=== PATIENT | male | born 1945 | race Caucasian/White ===

== ENCOUNTER 2022-02-22 10:43 | Observation (INO) | payer MEDICARE, OTHER ==
[~2022-02-22] VITALS: Ht 175.3 cm; Wt 96.2 kg
[~2022-02-22 10:43] MED LIST: AMLODIPINE BESY10 MG PO; ASPIRIN81 MG PO; CLOTRIMAZOLE TROCHE PO; FLUCONAZOLE100 MG PO; IBUPROFEN200 MG PO; LEVAQUIN500 MG PO; LEVEMIR100 UNIT/1 SQ; LOSARTAN POTAS100 MG PO; MECLIZINE HCL12.5 MG PO; METFORMIN HCL1000 MG PO; PANTOPRAZOLE SO40 MG PO; SIMVASTATIN20 MG PO
[2022-02-22] MEDS ORDERED: SODIUM CHLORIDE 0.9% 500ML 500 ML IV ONE (11:30)
[2022-02-22 11:50] LABS: BASOPHILS # (AUTO) 0.1 (0.0-0.1); EOSINOPHILS % 0.3 % (0.0-6.0); HEMATOCRIT 36.7 % (38.2-49.6); HEMOGLOBIN 11.9 g/dL (14.0-18.0); LYMPHOCYTES # (AUTO) 1.5 (1.0-3.2); LYMPHOCYTES % 15.9 % (18.0-39.1); MEAN CORPUSCULAR HEMOGLOBIN 28.8 pg (28-32); MEAN CORPUSCULAR HGB CONC 32.4 g/dL (31-35); MEAN CORPUSCULAR VOLUME 88.9 fL (81-99); MONOCYTES # (AUTO) 0.6 (0.2-0.8); MONOCYTES % 6.6 % (4.4-11.3); NEUTROPHILS % 75.7 % (38.7-80.0); PLATELET COUNT 223 x10e3/uL (140-360); RED BLOOD COUNT 4.13 x10e6/uL (4.3-5.7); RED CELL DISTRIBUTION WIDTH 12.6 % (11.7-14.4)
[2022-02-22 12:10] LABS: ALANINE AMINOTRANSFERASE 10 IU/L (0-55); ALBUMIN/GLOBULIN RATIO 1.3 (0.8-2.0); ALKALINE PHOSPHATASE 55 IU/L (40-150); ANION GAP 16.3 mmol/L (8-16); BLOOD UREA NITROGEN 16 mg/dL (7-26); BUN/CREATININE RATIO 15 (6-25); CALCIUM 9.3 mg/dL (8.4-10.2); CARBON DIOXIDE 25 mmol/L (22-29); CHLORIDE 104 mmol/L (98-107); CREATINE KINASE 54 IU/L (30-200); CREATININE, SERUM 1.06 mg/dL (0.72-1.25); GLUCOSE 81 mg/dL (74-118); MAGNESIUM 1.8 MG/DL (1.3-2.1); POTASSIUM 3.3 mmol/L (3.5-5.1); SODIUM 142 mmol/L (136-145)
[2022-02-22 12:14] LABS: INR 0.98; PROTHROMBIN TIME 13.9 seconds (11.9-14.5)
[2022-02-22 12:15] LABS: PARTIAL THROMBOPLASTIN TIME 27.9 seconds (23.8-35.5)
[2022-02-22] MEDS ORDERED: POTASSIUM CHLORIDE 20 MEQ TAB CR PO STA (12:38)
[2022-02-22] MEDS ORDERED: ONDANSETRON HCL INJ 2MG/ML 2ML 2 MG/ML VIAL IV PRN (12:45)
[2022-02-22] MEDS ORDERED: NITROGLYCERIN 0.4 MG SUBL SL PRN (12:45)
[2022-02-22] MEDS ORDERED: FAMOTIDINE 20 MG/2 ML VIAL IV SCH (12:45)
[2022-02-22] MEDS: SODIUM CHLORIDE 0.9% 1000ML 1,000 ML IV SCH (13:22)
[2022-02-22] MEDS ORDERED: METOPROLOL TARTRATE INJ 1 MG/ML VIAL IV PRN (14:00)
[2022-02-22] MEDS ORDERED: POLYETHYLENE GLYCOL 3350 17 GM PACK PO PRN (14:00)
[2022-02-22] MEDS: DEXTROSE 50% SYRINGE 50 ML IV PRN ×2 (14:15→15:06)
[2022-02-22] MEDS ORDERED: DEXTROSE 50% SYRINGE 50 ML IV ONE (14:26)
[2022-02-22 14:49] VITALS: BP 128/65
[2022-02-22] MEDS ORDERED: LEVEMIR FL100 UNIT/1 SQ (15:18)
[2022-02-22] MEDS: INSULIN LISPRO 100 UNIT/1 ML 3ML VIAL SQ SCH ×2 (15:19→21:00)
[2022-02-22] MEDS: DOCUSATE SODIUM 100 MG CAP PO SCH (16:19)
[2022-02-22 16:42] VITALS: BP 128/65
[2022-02-22 20:00] VITALS: BP 118/66
[2022-02-22 20:34] LABS: CREATINE KINASE MB 1.5 ng/mL (0-5.0)
[2022-02-22] MEDS: SIMVASTATIN 20 MG TAB PO SCH (22:08)
[2022-02-23] VITALS (11 sets, daily range): BP systolic 121–174; BP diastolic 62–74
[2022-02-23] MEDS: SODIUM CHLORIDE 0.9% 1000ML 1,000 ML IV SCH ×2 (01:08→17:11)
[2022-02-23] MEDS: ACETAMINOPHEN 325 MG TAB PO PRN (01:09)
[2022-02-23 04:21] LABS: BASOPHILS # (AUTO) 0.1 (0.0-0.1); EOSINOPHILS # (AUTO) 0.1 (0.0-0.4); EOSINOPHILS % 1.6 % (0.0-6.0); HEMATOCRIT 34.1 % (38.2-49.6); HEMOGLOBIN 11.1 g/dL (14.0-18.0); LYMPHOCYTES # (AUTO) 2.2 (1.0-3.2); LYMPHOCYTES % 24.9 % (18.0-39.1); MEAN CORPUSCULAR HEMOGLOBIN 28.6 pg (28-32); MEAN CORPUSCULAR HGB CONC 32.6 g/dL (31-35); MEAN CORPUSCULAR VOLUME 87.9 fL (81-99); MONOCYTES # (AUTO) 0.5 (0.2-0.8); MONOCYTES % 6.1 % (4.4-11.3); NEUTROPHILS # (AUTO) 5.8 (2.1-6.9); NEUTROPHILS % 66.1 % (38.7-80.0); PLATELET COUNT 211 x10e3/uL (140-360); RED BLOOD COUNT 3.88 x10e6/uL (4.3-5.7); RED CELL DISTRIBUTION WIDTH 12.6 % (11.7-14.4)
[2022-02-23 04:40] LABS: MAGNESIUM 1.5 MG/DL (1.3-2.1); PHOSPHORUS 2.6 MG/DL (2.3-4.7)
[2022-02-23 04:46] LABS: ALBUMIN 3.4 g/dL (3.5-5.0); ALBUMIN/GLOBULIN RATIO 1.3 (0.8-2.0); CALCIUM 8.6 mg/dL (8.4-10.2); CHOL/HDL RATIO 2.7 (3.9-4.7); CREATININE, SERUM 0.84 mg/dL (0.72-1.25)
[2022-02-23 04:58] LABS: FREE T4 (FREE THYROXINE) 1.14 ng/dL (0.8-1.8); THYROID STIMULATING HORMONE 0.316 uIU/mL (0.350-4.940)
[2022-02-23 05:03] LABS: CREATINE KINASE MB 1.8 ng/mL (0-5.0)
[2022-02-23] MEDS: INSULIN LISPRO 100 UNIT/1 ML 3ML VIAL SQ SCH ×4 (08:30→21:00)
[2022-02-23] MEDS ORDERED: NYSTATIN/TRIAMCINOLONE 15 GM CR TOP SCH (09:00)
[2022-02-23] MEDS ORDERED: MAGNESIUM SULFATE 2GM/50ML 50 ML IV ONE (09:00)
[2022-02-23] MEDS: PANTOPRAZOLE SOD 40 MG TABEC PO SCH ×2 (09:10→16:07)
[2022-02-23] MEDS: DOCUSATE SODIUM 100 MG CAP PO SCH ×2 (09:12→16:07)
[2022-02-23] MEDS: ASPIRIN 81 MG ENTERIC COATED PO SCH (09:12)
[2022-02-23] MEDS: LOSARTAN POTASSIUM 100 MG TAB PO SCH (09:14)
[2022-02-23] MEDS: NYSTATIN/TRIAMCINOLONE 15 GM CR TOP SCH ×2 (09:20→16:12)
[2022-02-23] MEDS ORDERED: IOPAMIDOL 370 MG/ML 100 ML INFUS..BTL INJ ONE (11:00)
[2022-02-23] MEDS ORDERED: SODIUM CHLORIDE 0.9% 100 ML ONE (11:00)
[2022-02-23] MEDS: SIMVASTATIN 20 MG TAB PO SCH (21:11)
[2022-02-23 22:08] LABS: CREATINE KINASE MB 2.2 ng/mL (0-5.0)
[2022-02-24] VITALS (10 sets, daily range): BP systolic 113–178; BP diastolic 54–88
[2022-02-24] MEDS: SODIUM CHLORIDE 0.9% 1000ML 1,000 ML IV SCH ×2 (04:45→16:21)
[2022-02-24 06:19] LABS: ANION GAP 19.8 mmol/L (8-16); CALCIUM 8.9 mg/dL (8.4-10.2); CREATININE, SERUM 0.83 mg/dL (0.72-1.25); POTASSIUM 3.8 mmol/L (3.5-5.1)
[2022-02-24] MEDS: NYSTATIN/TRIAMCINOLONE 15 GM CR TOP SCH ×2 (08:42→16:20)
[2022-02-24] MEDS: INSULIN LISPRO 100 UNIT/1 ML 3ML VIAL SQ SCH ×4 (08:42→21:00)
[2022-02-24] MEDS: PANTOPRAZOLE SOD 40 MG TABEC PO SCH ×2 (08:42→15:46)
[2022-02-24] MEDS: LOSARTAN POTASSIUM 100 MG TAB PO SCH (08:42)
[2022-02-24] MEDS: DOCUSATE SODIUM 100 MG CAP PO SCH ×2 (08:42→16:20)
[2022-02-24] MEDS: ASPIRIN 81 MG ENTERIC COATED PO SCH (08:42)
[2022-02-24] MEDS ORDERED: ONDANSETRON HCL 4 MG ORAL DISINTEGRATING TAB PO PRN (11:15)
[2022-02-24] MEDS: SIMVASTATIN 20 MG TAB PO SCH (21:13)
[2022-02-24] MEDS: ACETAMINOPHEN 325 MG TAB PO PRN (21:59)
[2022-02-25 03:59] VITALS: BP 155/74
[2022-02-25 06:29] LABS: ANION GAP 16.7 mmol/L (8-16); CALCIUM 8.9 mg/dL (8.4-10.2); CREATININE, SERUM 0.82 mg/dL (0.72-1.25); POTASSIUM 3.7 mmol/L (3.5-5.1)
[2022-02-25] MEDS: SODIUM CHLORIDE 0.9% 1000ML 1,000 ML IV SCH (07:14)
[2022-02-25 08:02] VITALS: BP 168/74
[2022-02-25 08:03] VITALS: BP_SYST 112; BP_SYST 130; BP_DIAS 67; BP_DIAS 68
[2022-02-25 08:12] VITALS: BP 112/68
[2022-02-25] MEDS: ASPIRIN 81 MG ENTERIC COATED PO SCH (08:34)
[2022-02-25] MEDS: PANTOPRAZOLE SOD 40 MG TABEC PO SCH (08:34)
[2022-02-25] MEDS: LOSARTAN POTASSIUM 100 MG TAB PO SCH (08:34)
[2022-02-25] MEDS: DOCUSATE SODIUM 100 MG CAP PO SCH (08:34)
[2022-02-25] MEDS: NYSTATIN/TRIAMCINOLONE 15 GM CR TOP SCH (08:36)
[2022-02-25] MEDS: INSULIN LISPRO 100 UNIT/1 ML 3ML VIAL SQ SCH ×2 (10:39→11:53)
[2022-02-25 11:24] VITALS: BP 129/59
== END 2022-02-25 15:31 | disposition home or self-care (01) ==
LOC: ER 10:52 → ERHOLD 12:41 → INTOOBSV 12:41 → MED/SURG3 14:59 → OBSVTOIN 02-24 14:12 → INTOOBSV 02-24 14:12
PROVIDERS: ADMIT Internal Medicine; ATTEND Internal Medicine
DX: R55 Syncope and collapse (principal); I69.398 Other sequelae of cerebral infarction; Z57.5 Occupational exposure to toxic agents in other industries; E66.9 Obesity, unspecified; Z68.31 Body mass index [BMI] 31.0-31.9, adult; H54.62 Unqualified visual loss, left eye, normal vision right eye; E86.0 Dehydration; G93.41 Metabolic encephalopathy; F03.90 Unspecified dementia, unspecified severity, without behavioral disturbance, psychotic disturbance, mood disturbance, and anxiety; E11.649 Type 2 diabetes mellitus with hypoglycemia without coma; I44.4 Left anterior fascicular block; E83.42 Hypomagnesemia; E87.6 Hypokalemia; Z20.822 Contact with and (suspected) exposure to COVID-19
CPT/HCPCS: 0223U; 36415 ×4; 70450; 71045; 71260; 72125; 74018; 80048 ×2; 80053 ×2; 80061; 82140; 82550 ×2; 82553 ×2; 82948 ×4; 83036; 83690; 83735 ×3; 83880; 84100; 84439; 84443 ×2; 84484 ×2; 85025 ×2; 85610; 85730; 93005; 93306; 93880; 94799; 97116; 97161; 99284; G0378 ×4; J2405; J3475; J7030 ×4; J7040; J7050; J7799; Q9967; S0164 ×3

== ENCOUNTER 2022-07-13 16:49 | Emergency (ER) | payer MEDICARE, OTHER ==
[~2022-07-13] VITALS: Ht 175.3 cm; Wt 96.2 kg
[~2022-07-13 16:49] MED LIST changes: +LEVEMIR FL100 UNIT/1 SQ
[2022-07-13 17:20] LABS: BASOPHILS # (AUTO) 0.1 (0.0-0.1); BASOPHILS % 1.1 % (0.0-1.0); EOSINOPHILS # (AUTO) 0.2 (0.0-0.4); EOSINOPHILS % 2.3 % (0.0-6.0); HEMATOCRIT 40.7 % (38.2-49.6); HEMOGLOBIN 12.4 g/dL (14.0-18.0); LYMPHOCYTES % 27.4 % (18.0-39.1); MEAN CORPUSCULAR HEMOGLOBIN 28.4 pg (28-32); MEAN CORPUSCULAR HGB CONC 30.5 g/dL (31-35); MEAN CORPUSCULAR VOLUME 93.3 fL (81-99); MONOCYTES # (AUTO) 0.6 (0.2-0.8); MONOCYTES % 7.6 % (4.4-11.3); NEUTROPHILS # (AUTO) 4.5 (2.1-6.9); NEUTROPHILS % 61.3 % (38.7-80.0); PLATELET COUNT 206 x10e3/uL (140-360); RED BLOOD COUNT 4.36 x10e6/uL (4.3-5.7); RED CELL DISTRIBUTION WIDTH 12.3 % (11.7-14.4)
[2022-07-13 17:31] LABS: CLARITY,URINE SL CLOUDY (CLEAR); COLOR,URINE YELLOW (YELLOW); KETONES,URINE NEGATIVE (NEGATIVE); LEUKOCYTE ESTERASE ,URINE NEGATIVE (NEGATIVE); NITRITE,URINE NEGATIVE (NEGATIVE); PROTEIN,URINE DIPSTICK NEGATIVE (NEGATIVE); URINE UROBILINOGEN 0.2 mg/dL (0.2 - 1)
[2022-07-13 17:40] LABS: ALBUMIN 3.6 g/dL (3.5-5.0); ALBUMIN/GLOBULIN RATIO 1.1 (0.8-2.0); CALCIUM 8.9 mg/dL (8.4-10.2); CREATININE, SERUM 1.02 mg/dL (0.72-1.25)
[2022-07-13 17:41] LABS: LIPASE 43 U/L (8-78)
[2022-07-13] MEDS ORDERED: IOPAMIDOL 370 MG/ML 100 ML INFUS..BTL INJ ONE (18:02)
== END 2022-07-13 21:54 | disposition home or self-care (01) ==
LOC: ER 17:03
DX: R10.30 Lower abdominal pain, unspecified (principal); N20.0 Calculus of kidney; R14.0 Abdominal distension (gaseous); E11.65 Type 2 diabetes mellitus with hyperglycemia; I10 Essential (primary) hypertension; R94.31 Abnormal electrocardiogram [ECG] [EKG]; Z86.73 Personal history of transient ischemic attack (TIA), and cerebral infarction without residual deficits
CPT/HCPCS: 36415; 74177; 80053; 81001; 83690; 84484; 85025; 93005; 99284; Q9967

== ENCOUNTER 2022-07-27 09:46 | Observation (INO) | payer MEDICARE, OTHER ==
[~2022-07-27] VITALS: Ht 175.3 cm; Wt 75.3 kg
[2022-07-27] MEDS ORDERED: ONDANSETRON HCL INJ 2MG/ML 2ML 2 MG/ML VIAL IV STA (10:02)
[2022-07-27] MEDS ORDERED: SODIUM CHLORIDE 0.9% 1000ML 1,000 ML IV ONE (10:15)
[2022-07-27] MEDS ORDERED: Morphine 4mg INJECTION 4 MG/ML INJ IV ONE (10:15)
[2022-07-27 10:21] LABS: BASOPHILS # (AUTO) 0.1 (0.0-0.1); BASOPHILS % 1.3 % (0.0-1.0); EOSINOPHILS # (AUTO) 0.2 (0.0-0.4); EOSINOPHILS % 2.8 % (0.0-6.0); HEMATOCRIT 39.8 % (38.2-49.6); HEMOGLOBIN 13.2 g/dL (14.0-18.0); LYMPHOCYTES # (AUTO) 1.8 (1.0-3.2); LYMPHOCYTES % 28.7 % (18.0-39.1); MEAN CORPUSCULAR HEMOGLOBIN 29.4 pg (28-32); MEAN CORPUSCULAR HGB CONC 33.2 g/dL (31-35); MEAN CORPUSCULAR VOLUME 88.6 fL (81-99); MONOCYTES # (AUTO) 0.4 (0.2-0.8); MONOCYTES % 6.8 % (4.4-11.3); NEUTROPHILS # (AUTO) 3.7 (2.1-6.9); NEUTROPHILS % 60.2 % (38.7-80.0); PLATELET COUNT 216 x10e3/uL (140-360); RED BLOOD COUNT 4.49 x10e6/uL (4.3-5.7); RED CELL DISTRIBUTION WIDTH 12.6 % (11.7-14.4)
[2022-07-27 10:41] LABS: ALBUMIN 3.8 g/dL (3.5-5.0); ALBUMIN/GLOBULIN RATIO 1.1 (0.8-2.0); CALCIUM 9.4 mg/dL (8.4-10.2); CREATININE, SERUM 0.97 mg/dL (0.72-1.25)
[2022-07-27] MEDS ORDERED: IOPAMIDOL 370 MG/ML 100 ML INFUS..BTL INJ ONE (11:01)
[2022-07-27 11:12] LABS: CLARITY,URINE CLEAR (CLEAR); COLOR,URINE YELLOW (YELLOW)
[2022-07-27 11:13] LABS: KETONES,URINE NEGATIVE (NEGATIVE); LEUKOCYTE ESTERASE ,URINE NEGATIVE (NEGATIVE); NITRITE,URINE NEGATIVE (NEGATIVE); PROTEIN,URINE DIPSTICK NEGATIVE (NEGATIVE); URINE UROBILINOGEN 0.2 mg/dL (0.2 - 1)
[2022-07-27 11:25] LABS: BACTERIA,URINE RARE /HPF; EPITHELIAL CELLS,URINE RARE /LPF; RBC,URINE 0-5 /HPF (0-5); WBC,URINE (MAN) 0-5 /HPF (0-5)
[2022-07-27] MEDS: SODIUM CHLORIDE 0.9% 1000ML 1,000 ML IV SCH ×2 (13:09→18:46)
[2022-07-27 14:27] LABS: INR 1.01; PROTHROMBIN TIME 13.5 seconds (11.9-14.5)
[2022-07-27] MEDS ORDERED: MIDAZOLAM HCL 2 MG/2 ML VIAL ONE ×2 (15:22→16:06)
[2022-07-27] MEDS ORDERED: FENTANYL CITRATE/PF 100MCG/2 ML INJ ONE ×2 (15:22→16:06)
[2022-07-27] MEDS ORDERED: SODIUM CHLORIDE 0.9% 250ML 250 ML ONE (15:23)
[2022-07-27 18:45] VITALS: BP 136/54
[2022-07-27 19:30] LABS: LACTATE DEHYDROGENASE 128 IU/L (125-220)
[2022-07-27 19:37] LABS: HCG,QUANTITATIVE < 1.20 mIU/mL (0-10)
[2022-07-27 20:00] VITALS: BP 153/66
[2022-07-27] MEDS: Morphine 4mg INJECTION 4 MG/ML INJ IV PRN (20:36)
[2022-07-27] MEDS: ONDANSETRON HCL INJ 2MG/ML 2ML 2 MG/ML VIAL IV PRN (20:36)
[2022-07-27] MEDS: INSULIN GLARGINE 100 UNITS/ML VIAL SQ SCH (20:40)
[2022-07-27] MEDS ORDERED: SIMVASTATIN 20 MG TAB PO SCH (21:00)
[2022-07-28] VITALS: BP 123/83
[2022-07-28 04:00] VITALS: BP 143/68
[2022-07-28 06:10] LABS: BASOPHILS # (AUTO) 0.1 (0.0-0.1); BASOPHILS % 1.3 % (0.0-1.0); EOSINOPHILS # (AUTO) 0.2 (0.0-0.4); EOSINOPHILS % 3.4 % (0.0-6.0); HEMATOCRIT 38.1 % (38.2-49.6); HEMOGLOBIN 12.4 g/dL (14.0-18.0); LYMPHOCYTES # (AUTO) 1.9 (1.0-3.2); LYMPHOCYTES % 27.7 % (18.0-39.1); MEAN CORPUSCULAR HGB CONC 32.5 g/dL (31-35); MEAN CORPUSCULAR VOLUME 89.2 fL (81-99); MONOCYTES # (AUTO) 0.5 (0.2-0.8); MONOCYTES % 7.7 % (4.4-11.3); NEUTROPHILS % 59.5 % (38.7-80.0); PLATELET COUNT 202 x10e3/uL (140-360); RED BLOOD COUNT 4.27 x10e6/uL (4.3-5.7); RED CELL DISTRIBUTION WIDTH 12.6 % (11.7-14.4)
[2022-07-28 06:34] LABS: ALBUMIN 3.5 g/dL (3.5-5.0); ALBUMIN/GLOBULIN RATIO 1.1 (0.8-2.0); ANION GAP 12.9 mmol/L (8-16); CALCIUM 8.7 mg/dL (8.4-10.2); CREATININE, SERUM 0.88 mg/dL (0.72-1.25); POTASSIUM 3.9 mmol/L (3.5-5.1)
[2022-07-28] MEDS: ONDANSETRON HCL INJ 2MG/ML 2ML 2 MG/ML VIAL IV PRN ×2 (07:14→14:17)
[2022-07-28] MEDS: Morphine 4mg INJECTION 4 MG/ML INJ IV PRN (07:15)
[2022-07-28 07:56] VITALS: BP 143/72
[2022-07-28 08:22] VITALS: BP 143/72
[2022-07-28] MEDS: INSULIN GLARGINE 100 UNITS/ML VIAL SQ SCH (09:00)
[2022-07-28] MEDS ORDERED: PANTOPRAZOLE SOD 40 MG TABEC PO SCH (09:00)
[2022-07-28] MEDS ORDERED: LOSARTAN POTASSIUM 100 MG TAB PO SCH (09:00)
[2022-07-28 11:22] VITALS: BP 147/73
== END 2022-07-28 15:07 | disposition home or self-care (01) ==
LOC: ER 09:58 → ERHOLD 12:22 → MED/SURG3 18:01
PROVIDERS: ADMIT Family Medicine; ATTEND Family Medicine
DX: R19.09 Other intra-abdominal and pelvic swelling, mass and lump (principal); I10 Essential (primary) hypertension; Z86.73 Personal history of transient ischemic attack (TIA), and cerebral infarction without residual deficits; I25.10 Atherosclerotic heart disease of native coronary artery without angina pectoris; Z57.5 Occupational exposure to toxic agents in other industries; E11.9 Type 2 diabetes mellitus without complications; Z20.822 Contact with and (suspected) exposure to COVID-19
CPT/HCPCS: 36415 ×2; 49180; 74177; 74470; 77012; 80053 ×2; 81001; 82105; 82948 ×2; 83615; 83690; 84702; 85025 ×2; 85610; 88305; 88342; 99284; G0378 ×2; J0690; J2250; J2270 ×2; J2405 ×2; J3010; J7030 ×2; J7050; Q9967; U0002; 88304; 99152

== ENCOUNTER 2022-08-13 14:13 | Emergency (ER) | payer MEDICARE, OTHER ==
[~2022-08-13] VITALS: Ht 175.3 cm; Wt 75.3 kg
== END 2022-08-13 16:51 | disposition home or self-care (01) ==
LOC: ER 14:25
DX: R10.9 Unspecified abdominal pain (principal); R19.00 Intra-abdominal and pelvic swelling, mass and lump, unspecified site; K62.89 Other specified diseases of anus and rectum; I10 Essential (primary) hypertension; E11.9 Type 2 diabetes mellitus without complications; Z79.4 Long term (current) use of insulin; Z79.84 Long term (current) use of oral hypoglycemic drugs; Z98.890 Other specified postprocedural states; Z86.73 Personal history of transient ischemic attack (TIA), and cerebral infarction without residual deficits; Z79.899 Other long term (current) drug therapy; Z79.82 Long term (current) use of aspirin
CPT/HCPCS: 99283

== ENCOUNTER 2022-08-24 09:55 | Emergency (ER) | payer MEDICARE, OTHER ==
[~2022-08-24] VITALS: Ht 175.3 cm; Wt 75.3 kg
[2022-08-24] MEDS ORDERED: ONDANSETRON HCL INJ 2MG/ML 2ML 2 MG/ML VIAL IV STA (10:13)
[2022-08-24] MEDS ORDERED: ACETAMINOPHEN/CODEINE 300MG - 30MG TAB PO ONE (10:15)
[2022-08-24 12:29] VITALS: BP 148/73
== END 2022-08-24 12:30 | disposition home or self-care (01) ==
LOC: ER 10:02
DX: R10.30 Lower abdominal pain, unspecified (principal); C76.2 Malignant neoplasm of abdomen; I10 Essential (primary) hypertension; E11.9 Type 2 diabetes mellitus without complications; Z86.73 Personal history of transient ischemic attack (TIA), and cerebral infarction without residual deficits
CPT/HCPCS: 99283